=== PATIENT | female | born 1960 | race Caucasian/White ===

== ENCOUNTER 2019-03-01 15:14 | Observation (INO) | payer SELFPAY ==
[2019-03-01] MEDS ORDERED: NORMAL SALINE 1000 ML 1,000 ML IV ONE (16:12)
--- NOTE | 2019-03-01 16:14 | ER Document Report ---
ED Medical Screen (RME) - General Chief Complaint: Slurred Speech Stated Complaint: POSSIBLE SYNCOPE Time Seen by Provider: 03/01/19 16:05 Mode of Arrival: Wheelchair Information source: Patient Notes: Patient presents complaining of syncopal episode that occurred at home in which it caused her to fall into a mirror and dresser. Patient states she has been having low blood pressure readings at home today with a reading as low as 68/48. Patient is not on any antihypertensive medication. Patient states she does have left-sided rib and chest pain. Patient's family states that they have noticed that her speech has been slurred since about 8 AM today. Patient does have a history of lupus and prior CVA. I have greeted and performed a rapid initial assessment of this patient. A comprehensive ED assessment and evaluation of the patient, analysis of test results and completion of the medical decision making process will be conducted by additional ED providers. - Related Data Allergies/Adverse Reactions: Penicillins Allergy (Verified 03/01/19 16:09) Sulfa (Sulfonamide Antibiotics) Allergy (Verified 03/01/19 16:09) Past Medical History - Social History Frequency of alcohol use: None Drug Abuse: None Physical Exam - Vital signs Vitals: Temp Pulse Resp BP Pulse Ox 97.6 F 84 16 92/75 L 99 03/01/19 15:20 03/01/19 15:20 03/01/19 15:20 03/01/19 15:20 03/01/19 15:20 - General General appearance: Alert Notes: Speech slightly slurred - Neurological Orientation: AAOx4 [place] Coma Scale Eye Opening: Spontaneous [place] Coma Scale Verbal: Oriented [place] Coma Scale Motor: Obeys Commands [place] Coma Scale Total: 15 Speech: Dysarthria Course - Vital Signs Vital signs: Temp Pulse Resp BP Pulse Ox 97.6 F 84 16 92/75 L 99 03/01/19 15:20 03/01/19 15:20 03/01/19 15:20 03/01/19 15:20 03/01/19 15:20
--- NOTE | 2019-03-01 16:41 | RADIOLOGY REPORT (SQ) ---
EXAM DESCRIPTION: CHEST SINGLE VIEW COMPLETED DATE/TIME: 03/01/2019 4:23 pm REASON FOR STUDY: syncope, slurred speech, L rib/cp COMPARISON: None. EXAM PARAMETERS: NUMBER OF VIEWS: One view. TECHNIQUE: Single frontal radiographic view of the chest acquired. RADIATION DOSE: NA LIMITATIONS: None. FINDINGS: LUNGS AND PLEURA: No opacities, masses or pneumothorax. No pleural effusion. MEDIASTINUM AND HILAR STRUCTURES: No masses. Contour normal. HEART AND VASCULAR STRUCTURES: Heart normal in size. Normal vasculature. BONES: No acute findings. HARDWARE: None in the chest. OTHER: No other significant finding. IMPRESSION: NO ACUTE RADIOGRAPHIC FINDING IN THE CHEST. TECHNICAL DOCUMENTATION: JOB ID: [id number] [employer]- All Rights Reserved Reading location - IP/workstation name: [email or web address]
--- NOTE | 2019-03-01 16:47 | RADIOLOGY REPORT (SQ) ---
EXAM DESCRIPTION: CT HEAD WITHOUT COMPLETED DATE/TIME: 03/01/2019 4:27 pm REASON FOR STUDY: syncope, slurred speech COMPARISON: None. TECHNIQUE: Axial images acquired through the brain without intravenous contrast. Images reviewed wi th bone, brain and subdural windows. Additional sagittal and coronal reconstructions were generated. Images stored on PACS. All CT scanners at this facility use dose modulation, iterative reconstruction, and/or weight based d osing when appropriate to reduce radiation dose to as low as reasonably achievable (ALARA). [facility]: Dose Right [facility]: CareDose [facility]: Dose Right [facility]: Teradose 4D [facility]: Zetera RADIATION DOSE: CT Rad equipment meets quality standard of care and radiation dose reduction techniq ues were employed. CTDIvol: 53.2 mGy. DLP: 1017 mGy-cm. mGy. LIMITATIONS: None. FINDINGS: VENTRICLES: Normal size and contour. CEREBRUM: No masses. No hemorrhage. No midline shift. No evidence for acute infarction. Normal gra y/white matter differentiation. No areas of low density in the white matter. CEREBELLUM: No masses. No hemorrhage. No alteration of density. No evidence for acute infarction. EXTRAAXIAL SPACES: No fluid collections. No masses. ORBITS AND GLOBE: No intra- or extraconal masses. Normal contour of globe without masses. CALVARIUM: No fracture. PARANASAL SINUSES: No fluid or mucosal thickening. SOFT TISSUES: No mass or hematoma. OTHER: No other significant finding. IMPRESSION: NO ACUTE INTRACRANIAL IMAGING FINDINGS. EVIDENCE OF ACUTE STROKE: NO. COMMENT: Quality ID # [id number]: Final reports with documentation of one or more dose reduction techniques (e.g., Automated exposure control, adjustment of the mA and/or kV according to patient size, use of iterative reconstruction technique) TECHNICAL DOCUMENTATION: JOB ID: [id number] [employer]- All Rights Reserved Reading location - IP/workstation name: [email or web address]
[2019-03-01 16:49] LABS: ABSOLUTE BASOPHILS # (AUTO) 0.1 10^3/uL (0.0-0.2); ABSOLUTE EOSINOPHILS # (AUTO) 0.2 10^3/uL (0.0-0.6); ABSOLUTE LYMPHOCYTES (AUTO) 2.6 10^3/uL (0.5-4.7); ABSOLUTE MONOCYTES (AUTO) 0.4 10^3/uL (0.1-1.4); ABSOLUTE NEUT (AUTO) 3.4 10^3/uL (1.7-8.2); BASOPHILS % (AUTO) 1.4 % (0-2); HEMATOCRIT 39.6 % (36.0-47.0); LYMPHOCYTES % (AUTO) 38.7 % (13-45); MEAN CORPUSCULAR HEMOGLOBIN 32.8 pg (27.0-33.4); MEAN CORPUSCULAR HGB CONC 35.2 g/dL (32.0-36.0); MEAN CORPUSCULAR VOLUME 93 fl (80-97); MONOCYTES % (AUTO) 6.2 % (3-13); PLATELET COUNT 171 10^3/uL (150-450); RED BLOOD COUNT 4.26 10^6/uL (3.72-5.28); RED CELL DISTRIBUTION WIDTH 13.7 % (11.5-14.0); SEGMENTED NEUTROPHILS % (AUTO) 50.7 % (42-78); TOTAL CELLS COUNTED % (AUTO) 100 %; WHITE BLOOD COUNT 6.7 10^3/uL (4.0-10.5)
[2019-03-01 16:54] LABS: INTERNATIONAL RATION (INR) 1.01; PROTHROMBIN TIME 13.3 SEC (11.4-15.4)
[2019-03-01 16:55] LABS: PARTIAL THROMBOPLASTIN TIME 39.5 SEC (23.5-35.8)
[2019-03-01 17:09] LABS: ALKALINE PHOSPHATASE 97 U/L (38-126); ANION GAP 15 (5-19); ASPARTATE AMINO TRANSFERASE 66 U/L (14-36); BILIRUBIN,DIRECT 0.3 mg/dL (0.0-0.4); BILIRUBIN,TOTAL 0.8 mg/dL (0.2-1.3); BLOOD UREA NITROGEN 16 mg/dL (7-20); CALCIUM 10.2 mg/dL (8.4-10.2); CARBON DIOXIDE 24 mmol/L (22-30); CHLORIDE 100 mmol/L (98-107); CREATINE KINASE 43 U/L (30-135); GLUCOSE 111 mg/dL (75-110); POTASSIUM 3.6 mmol/L (3.6-5.0); TOTAL PROTEIN 8.7 g/dL (6.3-8.2)
[2019-03-01 17:20] LABS: CREATINE KINASE MB 0.33 ng/mL (<4.55)
[2019-03-01 17:25] LABS: TROPONIN I < 0.012 ng/mL
[2019-03-01] MEDS ORDERED: ASPIRIN 325 MG TABLET, ENT COATED PO ONE (17:27)
--- NOTE | 2019-03-01 17:41 | ER Document Report ---
ED General - General Chief Complaint: Slurred Speech Stated Complaint: POSSIBLE SYNCOPE Time Seen by Provider: 03/01/19 16:05 Mode of Arrival: Wheelchair - HPI Patient complains to provider of: chest heaviness and drawn out speech Onset: Yesterday Severity: Moderate Pain Level: 2 Context: 58 year old female - current everyday smoker - arrives with son with multiple complaints. Chest heaviness last evening and today with some sob and today with "drawn out speech" that is not normal for her per her family and herself. She denies recent illness. Visiting from [facility] and has decided to stay here reportedly. Reports a cath in the past, and hld, thyroid disease, and cad with no stents and known CVD with 2 strokes in the past. No fever or chills and no rash or sick contacts. Pain was at rest without aggravating or alleviating factors. Associated symptoms: None Exacerbated by: Denies Relieved by: Denies - Related Data Allergies/Adverse Reactions: coconut Allergy (Verified 03/01/19 19:01) lisinopril Allergy (Verified 03/02/19 00:18) Penicillins Allergy (Verified 03/01/19 16:09) pineapple Allergy (Verified 03/01/19 19:01) Sulfa (Sulfonamide Antibiotics) Allergy (Verified 03/01/19 16:09) peach Allergy (Uncoded 03/01/19 19:01) Past Medical History - General Information source: Patient - Social History Smoking Status: Current Every Day Smoker Frequency of alcohol use: None Drug Abuse: None Family History: Reviewed & Not Pertinent Patient has suicidal ideation: No Patient has homicidal ideation: No Review of Systems - Review of Systems Constitutional: No symptoms reported EENT: No symptoms reported Cardiovascular: No symptoms reported Respiratory: No symptoms reported Gastrointestinal: No symptoms reported Genitourinary: No symptoms reported Female Genitourinary: No symptoms reported Musculoskeletal: No symptoms reported Skin: No symptoms reported Hematologic/Lymphatic: No symptoms reported Neurological/Psychological: No symptoms reported Physical Exam - Vital signs Vitals: Temp Pulse Resp BP Pulse Ox 97.6 F 84 16 92/75 L 99 03/01/19 15:20 03/01/19 15:20 03/01/19 15:20 03/01/19 15:20 03/01/19 15:20 Interpretation: Normal - General General appearance: Appears well, Alert - HEENT Head: Normocephalic, Atraumatic Eyes: Normal Pupils: PERRL - Respiratory Respiratory status: No respiratory distress Chest status: Nontender Breath sounds: Normal Chest palpation: Normal - Cardiovascular Rhythm: Regular Heart sounds: Normal auscultation Murmur: No - Abdominal Inspection: Normal Distension: No distension Bowel sounds: Normal Tenderness: Nontender Organomegaly: No organomegaly - Back Back: Normal, Nontender - Extremities General upper extremity: Normal inspection, Nontender, Normal color, Normal ROM, Normal temperature General lower extremity: Normal inspection, Nontender, Normal color, Normal ROM, Normal temperature, Normal weight bearing. No: Manuel's sign - Neurological Neuro grossly intact: Yes Cognition: Normal Orientation: AAOx4 Kaycee Coma Scale Eye Opening: Spontaneous [place] Coma Scale Verbal: Oriented [place] Coma Scale Motor: Obeys Commands [place] Coma Scale Total: 15 Speech: Normal Motor strength normal: LUE, RUE, LLE, RLE Sensory: Normal - Psychological Associated symptoms: Normal affect, Normal mood - Skin Skin Temperature: Warm Skin Moisture: Dry Skin Color: Normal Course - Re-evaluation Re-evalutation: 03/01/19 17:59 MDM 58 year old female with heart score 4 and ekg that is not ischemic, but not normal - with no prior studies here - is here with chest heaviness and drawn out speech. I have discussed with Dr. Finley and he has graciously agreed to see and evaluate for admission. - Vital Signs Vital signs: Temp Pulse Resp BP Pulse Ox 97.6 F 84 21 H 121/68 99 03/01/19 15:20 03/01/19 15:20 03/02/19 01:01 03/02/19 01:01 03/02/19 01:01 - Laboratory Result Diagrams: 03/01/19 16:33 03/01/19 16:33 Laboratory results interpreted by me: 03/01/19 03/01/19 03/01/19 16:33 16:33 17:58 APTT 39.5 H Glucose 111 H AST 66 H Total Protein 8.7 H Urine Nitrite POSITIVE H - Diagnostic Test Radiology reviewed: Reports reviewed - EKG Interpretation by Me EKG shows normal: Sinus rhythm Rate: Normal Rhythm: NSR - NSR Nl [place] [address] elevation or depression repolarization abnromality diffusely my interpretation. Critical Care Note - Critical Care Note Total time excluding time spent on procedures (mins): 30 Discharge - Discharge Clinical Impression: Difficulty with speech Chest pain Qualifiers: Chest pain type: unspecified Qualified Code(s): R07.9 - Chest pain, unspecified Condition: Good Disposition: ADMITTED INPATIENT Admitting Provider: Malia (Hospitalist) Unit Admitted: [facility]
[2019-03-01] MEDS ORDERED: NITROGLYCERIN 0.4 MG/TAB 25 TAB/BOTTLE SL PRN (17:54)
[2019-03-01 18:32] LABS: APPEARANCE,URINE SLIGHTLY-CLOUDY; BILIRUBIN,URINE NEGATIVE (NEGATIVE); COLOR,URINE YELLOW; GLUCOSE, URINE NEGATIVE (NEGATIVE); KETONES,URINE NEGATIVE (NEGATIVE); LEUKOCYTE ESTERASE,URINE NEGATIVE (NEGATIVE); NITRITE,URINE POSITIVE (NEGATIVE); PROTEIN,URINE NEGATIVE (NEGATIVE); URINE SPECIFIC GRAVITY 1.008; UROBILINOGEN,URINE NEGATIVE mg/dL (<2.0)
--- NOTE | 2019-03-01 18:33 | PDOC H&P ---
History of Present Illness Patient complains of: multiple complaints History of Present Illness: PHILIP ESPITIA is a 58 year old female who reports a past medical history of prior CVA with mild left arm residual weakness and history CAD with no prior intervention or stenting who is presenting with chest pain, syncope and speech problems. Patient's son and [id number] are at the bedside. They report that patient fell earlier today around 12 noon. She reported that she was feeling lightheaded and dizzy and when she stood up she passed out and lost consciousness. Patient's daughter found her on the floor and she was reportedly slightly confused but recovered. Denies urinary or fecal incontinence. Denies seizure-like activity. I do not appreciate gross slurring of speech on encounter but son and [id number] say that her speech is a little slurred and that this is not the way she talks. Patient says that her left arm is slightly more weak than her baseline. On neuro examination, she is a 4/5 strength on the left arm. She also complained that she had chest pain last night which she described as pressure-like in sensation, nonradiating. Denies shortness of breath. She reports that she had a stress test done 2018 and ended up having a cardiac cath in [place]. She was told that she had CAD but there was no obstructive or significant lesion or findings requiring intervention or stenting. 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 She still smokes half a pack to a pack of cigarettes a day. Social History Smoking Status: Current Every Day Smoker Family History Parental Family History Reviewed: Yes - No premature CAD Children Family History Reviewed: No Sibling(s) Family History Reviewed.: No Medication/Allergy Allergies/Adverse Reactions: coconut Allergy (Verified 03/01/19 19:01) Penicillins Allergy (Verified 03/01/19 16:09) pineapple Allergy (Verified 03/01/19 19:01) Sulfa (Sulfonamide Antibiotics) Allergy (Verified 03/01/19 16:09) peach Allergy (Uncoded 03/01/19 19:01) Review of Systems All systems: reviewed and no additional remarkable complaints except as stated - As mentioned in HPI Physical Exam Vital Signs: Temp Pulse Resp BP Pulse Ox 97.6 F 84 16 92/75 L 98 03/01/19 15:20 03/01/19 15:20 03/01/19 15:20 03/01/19 15:20 03/01/19 16:11 Intake & Output 02/28/19 03/01/19 03/02/19 06:59 06:59 06:59 Intake Total 1000 Balance 1000 Weight 172 lb 6.424 oz General appearance: PRESENT: no acute distress, well-developed, well-nourished Head exam: PRESENT: atraumatic, normocephalic Eye exam: PRESENT: conjunctiva pink, EOMI, PERRLA. ABSENT: scleral icterus Ear exam: PRESENT: normal external ear exam Mouth exam: PRESENT: moist, tongue midline Neck exam: ABSENT: carotid bruit, JVD, lymphadenopathy, thyromegaly Respiratory exam: PRESENT: clear to auscultation slick. ABSENT: rales, rhonchi, wheezes Cardiovascular exam: PRESENT: RRR. ABSENT: diastolic murmur, rubs, systolic murmur Pulses: PRESENT: normal dorsalis pedis pul GI/Abdominal exam: PRESENT: normal bowel sounds, soft. ABSENT: distended, guarding, mass, organolmegaly, rebound, tenderness Rectal exam: PRESENT: deferred Neurological exam: PRESENT: alert, awake, oriented to person, oriented to place, oriented to time, oriented to situation, CN II-XII grossly intact, motor sensory deficit - 4/5 left arm strength Results Laboratory Results: 03/01/19 16:33 03/01/19 16:33 03/01/19 03/01/19 16:33 16:33 WBC 6.7 RBC 4.26 Hgb 14.0 Hct 39.6 MCV 93 MCH 32.8 MCHC 35.2 RDW 13.7 Plt Count 171 Seg Neutrophils % 50.7 Sodium 138.8 Potassium 3.6 Chloride 100 Carbon Dioxide 24 Anion Gap 15 BUN 16 Creatinine 0.86 Est GFR ( Amer) > 60 Glucose 111 H Calcium 10.2 Total Bilirubin 0.8 AST 66 H Alkaline Phosphatase 97 Total Protein 8.7 H Albumin 5.0 03/01/19 03/01/19 16:33 16:33 Creatine Kinase 43 CK-MB (CK-2) 0.33 Troponin I < 0.012 Impressions: Chest X-Ray 03/01/19 16:11 IMPRESSION: NO ACUTE RADIOGRAPHIC FINDING IN THE CHEST. Head CT 03/01/19 16:11 IMPRESSION: NO ACUTE INTRACRANIAL IMAGING FINDINGS. EVIDENCE OF ACUTE STROKE: NO. Assessment and Plan - Diagnosis (1) Left arm weakness Is this a current diagnosis for this admission?: Yes Plan: Patient has 4/5 left arm strength. She does report a history of CVA with residual left-sided weakness. She reports her left arm feels slightly more weak than her baseline. I do not appreciate gross slurring of speech on encounter but son and [id number] say that her speech is a little slurred and that this is not the way she talks. (2) Syncope Is this a current diagnosis for this admission?: Yes Plan: We will check orthostatic vital signs. Will order a carotid Doppler. 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 Will continue to cycle troponins and EKGs. Consider outpatient stress testing pending c ompletion of cardiac enzymes. - Time Time Spent with patient: 25-34 minutes
[2019-03-01] MEDS ORDERED: DIAZEPAM 5 MG TABLET PO ONE (20:55)
[2019-03-01] MEDS ORDERED: ATORVASTATIN CALCIUM 40 MG TABLET PO SCH (22:00)
--- NOTE | 2019-03-01 22:18 | EKG REPORT ---
SEVERITY:- BORDERLINE ECG - SINUS RHYTHM BORDERLINE T ABNORMALITIES, ANTERIOR LEADS : Confirmed by: Falguni Norwood 01-Mar-2019 22:17:36
[2019-03-01] MEDS: HEPARIN SOD (PORCINE) 5,000 UNIT/ML 1 ML VIAL SUBCUT SCH (22:26)
[2019-03-01] MEDS ORDERED: NICOTINE 21 MG/24 HR PATCH.TD24 TD ONE (22:45)
[2019-03-01] MEDS ORDERED: ACETAMINOPHEN 325 MG TABLET PO PRN (22:55)
[2019-03-01] MEDS: KETOROLAC TROMETHAMINE INJ/PF 30 MG/1 ML SDV IV PRN (23:21)
--- NOTE | 2019-03-02 02:53 | RADIOLOGY REPORT (SQ) ---
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 TECHNIQUE: MR BRAIN WITHOUT IV CONTRAST on 03/01/2019 7:40 PM MANAGER UNIT This exam was performed according to our departmental dose-optimization program, which includes automated exposure control, adjustment of the mA and/or kV according to patient size and/or use of iterative reconstruction technique. FINDINGS: There is no acute hemorrhage, mass effect or midline shift. There are no areas of restricted diffusion. Midline structures are unremarkable. The expected intracranial flow voids are present. There is no hydrocephalus. There is no significant volume loss for age. The calvarium is intact. Orbits and globes are unremarkable. The paranasal sinuses are clear. Mastoid air cells are clear. IMPRESSION: No acute intracranial findings.
[2019-03-02] MEDS: KETOROLAC TROMETHAMINE INJ/PF 30 MG/1 ML SDV IV PRN (05:17)
[2019-03-02] MEDS: HEPARIN SOD (PORCINE) 5,000 UNIT/ML 1 ML VIAL SUBCUT SCH (05:19)
[2019-03-02] MEDS ORDERED: NITROGLYCERIN 0.4 MG/TAB 25 TAB/BOTTLE SL PRN (08:55)
[2019-03-02] MEDS ORDERED: ASPIRIN 81 MG TABLET, CHEWABLE PO SCH (10:00)
--- NOTE | 2019-03-02 10:20 | PDOC DISCHARGE SUMMARY ---
Impression - Admit/DC Date/PCP Admission Date/Primary Care Provider: 03/01/19 18:56 Discharge Date: 03/02/19 - Assessment Summary: The patient is feeling better today. Her symptoms certainly could have been caused by transient hypotension. She has had extensive cardiac work-up over the last year with no significant positive findings. As discussed with the patient she will discharge to home. She needs to establish with local physicians. I have made referrals as noted above. - Additional Information Resuscitation Status: Full Code Discharge Diet: Cardiac Discharge Activity: Activity As Tolerated Referrals: PHILIPPE DRAPER MD [ACTIVE STAFF] - CARROL TEJADA MD [COMMUNITY BASED STAFF] - Home Medications: Acetaminophen [Tylenol 325 mg Tablet] 650 mg PO Q4HP PRN tablet 03/02/19 Albuterol Sulfate [Albuterol Sulfate Hfa] puff IH 03/02/19 Amitriptyline HCl [Elavil 10 mg Tablet] 10 mg PO 03/02/19 Aspirin [Aspirin 81 mg Chewable Tablet] 81 mg PO DAILY tab.chew 03/02/19 Gabapentin [Neurontin 300 mg Capsule] 300 mg PO 03/02/19 Ipratropium [place] [Atrovent Hfa Inhalation Aerosol 12.9 gm Mdi] puff IH PRN 03/02/19 Levothyroxine Sodium [Synthroid 0.075 mg Tablet] 0.075 mg PO 03/02/19 Methocarbamol [Robaxin 500 mg Tablet] 500 mg PO 03/02/19 Naproxen [Naprosyn] 500 mg PO 03/02/19 Nitroglycerin [Nitrostat 0.4 mg (1/150 Gr) Tabs 25/Bottle] 1 tab SL Q5MP PRN 03/02/19 Prazosin HCl [Minipress] 5 mg PO 03/02/19 Pregabalin 200 mg PO Q8 03/02/19 Sertraline HCl [Zoloft] 25 mg PO 03/02/19 Tizanidine HCl [Zanaflex] 2 mg PO 03/02/19 Topiramate [Topamax 25 mg Tablet] 25 mg PO 03/02/19 History of Present Illiness History of Present Illness: PHILIP ESPITIA is a 58 year old female with a history of CVA and residual mild left arm weakness. She has a history of coronary artery disease but in fact had a catheterization 6 to 8 months ago with no stenting required. She presented to the emergency department after a syncopal episode. Family reported some speech difficulty and the patient reported chest pain. The patient was referred to the hospital service for admission. Hospital Course Hospital Course: Unremarkable hospital course. By this morning all symptoms have resolved. Troponins are undetectable x3. Carotid ultrasound is waiting to be performed however the patient will discharge home and finish her work-up as an outpatient. Physical Exam Vital Signs: Temp Pulse Resp BP Pulse Ox 98.5 F 83 20 112/67 100 03/02/19 08:00 03/02/19 08:00 03/02/19 08:00 03/02/19 08:00 03/02/19 08:00 Intake & Output 03/01/19 03/02/19 03/03/19 06:59 06:59 06:59 Intake Total 1360 Balance 1360 Weight 78.2 kg General appearance: PRESENT: cooperative, mild distress, well-developed, well- nourished Head exam: PRESENT: normocephalic, other - Tender area parieto-occipital scalp. No laceration or severe contusion noted. Eye exam: PRESENT: EOMI. ABSENT: conjunctival injection, scleral icterus Ear exam: PRESENT: normal external ear exam. ABSENT: bleeding, drainage Teeth exam: PRESENT: poor dentation Cardiovascular exam: PRESENT: RRR, +S1, +S2 GI/Abdominal exam: PRESENT: normal bowel sounds, soft, tenderness - Tenderness bilateral anterior axillary flank areas mid to lower abdomen. No palpable masses.. ABSENT: distended Rectal exam: PRESENT: deferred Gentrourinary exam: ABSENT: indwelling catheter Musculoskeletal exam: PRESENT: normal inspection Neurological exam: PRESENT: alert, awake, oriented to person, oriented to place, oriented to time, oriented to situation, CN II-XII grossly intact Psychiatric exam: ABSENT: agitated, anxious Results Laboratory Results: WBC 6.7 10^3/uL (4.0-10.5) 03/01/19 16:33 RBC 4.26 10^6/uL (3.72-5.28) 03/01/19 16:33 Hgb 14.0 g/dL (12.0-15.5) 03/01/19 16:33 Hct 39.6 % (36.0-47.0) 03/01/19 16:33 MCV 93 fl (80-97) 03/01/19 16:33 MCH 32.8 pg (27.0-33.4) 03/01/19 16:33 MCHC 35.2 g/dL (32.0-36.0) 03/01/19 16:33 RDW 13.7 % (11.5-14.0) 03/01/19 16:33 Plt Count 171 10^3/uL (150-450) 03/01/19 16:33 Lymph % (Auto) 38.7 % (13-45) 03/01/19 16:33 [place] % (Auto) 6.2 % (3-13) 03/01/19 16:33 Eos % (Auto) 3.0 % (0-6) 03/01/19 16:33 Baso % (Auto) 1.4 % (0-2) 03/01/19 16:33 Absolute Neuts (auto) 3.4 10^3/uL (1.7-8.2) 03/01/19 16:33 Absolute Lymphs (auto) 2.6 10^3/uL (0.5-4.7) 03/01/19 16:33 Absolute Monos (auto) 0.4 10^3/uL (0.1-1.4) 03/01/19 16:33 Absolute Eos (auto) 0.2 10^3/uL (0.0-0.6) 03/01/19 16:33 Absolute Basos (auto) 0.1 10^3/uL (0.0-0.2) 03/01/19 16:33 Seg Neutrophils % 50.7 % (42-78) 03/01/19 16:33 PT 13.3 SEC (11.4-15.4) 03/01/19 16:33 INR 1.01 03/01/19 16:33 APTT 39.5 SEC (23.5-35.8) H 03/01/19 16:33 Sodium 138.8 mmol/L (137-145) 03/01/19 16:33 Potassium 3.6 mmol/L (3.6-5.0) 03/01/19 16:33 Chloride 100 mmol/L (98-107) 03/01/19 16:33 Carbon Dioxide 24 mmol/L (22-30) 03/01/19 16:33 Anion Gap 15 (5-19) 03/01/19 16:33 BUN 16 mg/dL (7-20) 03/01/19 16:33 Creatinine 0.86 mg/dL (0.52-1.25) 03/01/19 16:33 Est GFR ( Amer) > 60 (>60) 03/01/19 16:33 Est GFR (MDRD) Non-Af > 60 (>60) 03/01/19 16:33 Glucose 111 mg/dL (75-110) H 03/01/19 16:33 Calcium 10.2 mg/dL (8.4-10.2) 03/01/19 16:33 Total Bilirubin 0.8 mg/dL (0.2-1.3) 03/01/19 16:33 Direct Bilirubin 0.3 mg/dL (0.0-0.4) 03/01/19 16:33 Neonat Total Bilirubin Not Reportable 03/01/19 16:33 Neonat Direct Bilirubin Not Reportable 03/01/19 16:33 Neonat Indirect Bili Not Reportable 03/01/19 16:33 AST 66 U/L (14-36) H 03/01/19 16:33 ALT 46 U/L (<35) 03/01/19 16:33 Alkaline Phosphatase 97 U/L (38-126) 03/01/19 16:33 Creatine Kinase 43 U/L (30-135) 03/01/19 16:33 CK-MB (CK-2) 0.33 ng/mL (<4.55) 03/01/19 16:33 Troponin I < 0.012 ng/mL 03/02/19 05:48 Total Protein 8.7 g/dL (6.3-8.2) H 03/01/19 16:33 Albumin 5.0 g/dL (3.5-5.0) 03/01/19 16:33 Urine Color YELLOW 03/01/19 17:58 Urine Appearance SLIGHTLY-CLOUDY 03/01/19 17:58 Urine pH 5.0 (5.0-9.0) 03/01/19 17:58 Ur Specific [place] 1.008 03/01/19 17:58 Urine Protein NEGATIVE mg/dL (NEGATIVE) 03/01/19 17:58 Urine Glucose (UA) NEGATIVE mg/dL (NEGATIVE) 03/01/19 17:58 Urine Ketones NEGATIVE mg/dL (NEGATIVE) 03/01/19 17:58 Urine Blood NEGATIVE (NEGATIVE) 03/01/19 17:58 Urine Nitrite POSITIVE (NEGATIVE) H 03/01/19 17:58 Urine Bilirubin NEGATIVE (NEGATIVE) 03/01/19 17:58 Urine Urobilinogen NEGATIVE mg/dL (<2.0) 03/01/19 17:58 Ur Leukocyte Esterase NEGATIVE (NEGATIVE) 03/01/19 17:58 Urine WBC (Auto) 3 /HPF 03/01/19 17:58 Urine RBC (Auto) 0 /HPF 03/01/19 17:58 U Hyaline Cast (Auto) 6 /LPF 03/01/19 17:58 Urine Bacteria (Auto) 1+ /HPF 03/01/19 17:58 Squamous Epi Cells Auto 1 /HPF 03/01/19 17:58 Urine Mucus (Auto) FEW /LPF 03/01/19 17:58 Urine Ascorbic Acid NEGATIVE (NEGATIVE) 03/01/19 17:58 03/01/19 03/01/19 03/02/19 16:33 22:46 05:48 CK-MB (CK-2) 0.33 Troponin I < 0.012 < 0.012 < 0.012 Impressions: Chest X-Ray 03/01/19 16:11 IMPRESSION: NO ACUTE RADIOGRAPHIC FINDING IN THE CHEST. Head CT 03/01/19 16:11 IMPRESSION: NO ACUTE INTRACRANIAL IMAGING FINDINGS. EVIDENCE OF ACUTE STROKE: NO. Head MRI 03/01/19 19:40 IMPRESSION: No acute intracranial findings. Plan Health Concerns: Multiple comorbidities requiring multiple specialists. The patient would benefit from a strong primary care provider to coordinate all of the prac titioners as well as monitor for polypharmacy. Plan of Treatment: Establish initially with primary care and cardiology. Primary care can then refer to neurology as well as the multiple specialist that she was previously seeing in [place]. She reports that her son is going to be having her relocate locally. Goals: Relocated to [place] and establish with appropriate medical providers. Time Spent: Greater than 30 Minutes Stroke Is this a Stroke Patient?: No Acute Heart Failure - Is this a Heart Failure Patient?: No
[2019-03-02] MEDS ORDERED: BUTALB/ACETAMINOPHEN/CAFFEINE 1 TAB EACH PO ONE (10:30)
[2019-03-02 11:29] VITALS: BP 110/65
== END 2019-03-02 11:43 | disposition home or self-care (01) ==
LOC: ER 15:14 → EH 18:56 → INTOOBSV 18:56 → EH 03-02 09:57
PROVIDERS: ADMIT Internal Medicine; ATTEND Internal Medicine
DX: R07.9 Chest pain, unspecified (principal); R53.1 Weakness; R55 Syncope and collapse; I25.10 Atherosclerotic heart disease of native coronary artery without angina pectoris; I69.334 Monoplegia of upper limb following cerebral infarction affecting left non-dominant side; R06.02 Shortness of breath; R47.1 Dysarthria and anarthria; R40.2362 Coma scale, best motor response, obeys commands, at arrival to emergency department; R40.2142 Coma scale, eyes open, spontaneous, at arrival to emergency department; R40.2252 Coma scale, best verbal response, oriented, at arrival to emergency department; F17.210 Nicotine dependence, cigarettes, uncomplicated
CPT/HCPCS: 93005; 99291; 96360; 36415 ×2; 82553; 82550; 85025; 85610; 85730; 80053; 81001; 84484 ×2; 70551; 71045; 70450; 93010; G0378 ×2; J3490 ×2; J1885 ×2; J7030

== ENCOUNTER 2019-07-23 16:55 | Emergency (ER) | payer MEDICAID ==
[2019-07-23 17:18] LABS: ABSOLUTE BASOPHILS # (AUTO) 0.1 10^3/uL (0.0-0.2); ABSOLUTE EOSINOPHILS # (AUTO) 0.2 10^3/uL (0.0-0.6); ABSOLUTE LYMPHOCYTES (AUTO) 1.8 10^3/uL (0.5-4.7); ABSOLUTE MONOCYTES (AUTO) 0.4 10^3/uL (0.1-1.4); ABSOLUTE NEUT (AUTO) 2.6 10^3/uL (1.7-8.2); BASOPHILS % (AUTO) 1.1 % (0-2); HEMATOCRIT 36.1 % (36.0-47.0); HEMOGLOBIN 12.5 g/dL (12.0-15.5); LYMPHOCYTES % (AUTO) 35.9 % (13-45); MEAN CORPUSCULAR HGB CONC 34.7 g/dL (32.0-36.0); MEAN CORPUSCULAR VOLUME 92 fl (80-97); PLATELET COUNT 124 10^3/uL (150-450); RED BLOOD COUNT 3.92 10^6/uL (3.72-5.28); RED CELL DISTRIBUTION WIDTH 13.5 % (11.5-14.0); TOTAL CELLS COUNTED % (AUTO) 100 %
[2019-07-23 17:36] LABS: ALBUMIN 3.8 g/dL (3.5-5.0); ALKALINE PHOSPHATASE 87 U/L (38-126); ANION GAP 6 (5-19); ASPARTATE AMINO TRANSFERASE 35 U/L (14-36); BILIRUBIN,TOTAL 0.6 mg/dL (0.2-1.3); BLOOD UREA NITROGEN 12 mg/dL (7-20); CALCIUM 8.8 mg/dL (8.4-10.2); CARBON DIOXIDE 24 mmol/L (22-30); CHLORIDE 107 mmol/L (98-107); CREATINE KINASE 61 U/L (30-135); GLUCOSE 110 mg/dL (75-110); POTASSIUM 3.8 mmol/L (3.6-5.0)
--- NOTE | 2019-07-23 17:41 | ER Document Report ---
ED Dizziness/Weakness - General Chief Complaint: Syncope Stated Complaint: SYNOPE Time Seen by Provider: 07/23/19 17:10 Primary Care Provider: TINY GONZALEZ PA-C [Primary Care Provider] - Follow up as needed Mode of Arrival: Stretcher Information source: Patient Notes: Patient is a 58-year-old female who comes in by EMS after sustaining a syncopal type episode where she became dizzy and fell. She originally states that she is coming down her stairs going into the kitchen using her walker because she has a history of chronic back problems while she felt a wave come over her that she became weak and she believes she began to sit down on her walker but when she came to the walker was on top of her. She struggled to get up and go to the living room where her phone was and as she got to the living room again she got this wave coming over her weakness and she fell again onto the couch hitting the back of her head. She is unsure whether she struck her head in the kitchen floor or not. Patient denies any history of anticoagulation. She denies any history of hypertension states she has a history of hypotension. She has history of chronic back problems she sees an orthopedist and a neurologist. Patient denies any history of cardiac problems she has had no nausea vomiting or diarrhea. She has had no loss of sensation in her lower extremities. This following this started happening more regularly started approximately 2 months ago. She says she has discussed it with her primary care physician but that there is nothing they have done about it at this point. The falling seems to be getting more frequent. She also does have a history of migraines but denies any headache currently. TRAVEL OUTSIDE OF THE [place] IN LAST 30 DAYS: No - HPI Patient complains to provider of: Dizziness, Weakness. No: Vertigo Onset: Just prior to arrival Onset/Duration: Sudden, Intermittent Quality of pain: No pain Severity: Moderate Pain Level: 2 Associated symptoms: Fainted Baseline gait: Uses a walker - Related Data Allergies/Adverse Reactions: coconut Allergy (Verified 07/23/19 20:24) lisinopril Allergy (Verified 07/23/19 20:24) Penicillins Allergy (Verified 07/23/19 20:24) pineapple Allergy (Verified 07/23/19 20:24) Sulfa (Sulfonamide Antibiotics) Allergy (Verified 07/23/19 20:24) peach Allergy (Mild, Uncoded 07/23/19 20:24) Past Medical History - General Information source: Patient - Social History Smoking Status: Current Some Day Smoker Cigarette use (# per day): Yes - Patient states that she is down to having 1 cigarette a day with her coffee Smoking Education Provided: Yes Frequency of alcohol use: None Drug Abuse: None Lives with: Family Family History: Reviewed & Not Pertinent Patient has homicidal ideation: No - Past Medical History Cardiac Medical History: Reports: Hx Heart Attack Pulmonary Medical History: Reports: Hx COPD Musculoskeletal Medical History: Reports Hx Arthritis Psychiatric Medical History: Reports: Hx Depression - anxiety Review of Systems - Review of Systems Constitutional: No symptoms reported EENT: denies: Ear pain, Ear discharge, Nose congestion, Nose discharge, Sinus pressure, Sinus discharge - No give yourself to schedule exercise Cardiovascular: No symptoms reported Respiratory: No symptoms reported Gastrointestinal: No symptoms reported Genitourinary: No symptoms reported Female Genitourinary: No symptoms reported Musculoskeletal: Back pain Skin: No symptoms reported Hematologic/Lymphatic: No symptoms reported Neurological/Psychological: Lost consciousness -: Yes All other systems reviewed and negative Physical Exam - Vital signs Vitals: Pulse Ox 99 07/23/19 17:00 Interpretation: Hypotensive - Notes Notes: PHYSICAL EXAMINATION: GENERAL: Patient is well-nourished well-developed 50-year-old female who is in no apparent distress on physical exam. She is awake alert and oriented x4. She is communicative. HEAD: Atraumatic, normocephalic. Examination patient's head shows no sign of hematomas abrasions or ecchymosis. No soft spots on the head and no tender spots on palpation throughout the skull. EYES: Pupils equal round and reactive to light, extraocular movements intact, conjunctiva are normal. ENT: Nares patent, oropharynx clear without exudates. Moist mucous membranes. NECK: Examination patient very concerned as her cervical spine she has tenderness noted at the proximal portion of the posterior cervical spine at the base of the skull. Patient has tenderness to palpation in that area. She has no range of motion deficiencies noted at this time. LUNGS: Auscultation patient's lungs show she has bilateral breath sounds breath sounds are increased throughout there is no rhonchi rales or wheeze heard at this time HEART: Regular rate and rhythm without murmurs ABDOMEN: Soft, nontender, nondistended abdomen. No guarding, no rebound. No masses appreciated. Female : deferred Musculoskeletal: Normal range of motion, no pitting or edema. No cyanosis. NEUROLOGICAL: Normal speech, Normal sensory, motor exams PSYCH: Normal mood, normal affect. SKIN: Warm, Dry, normal turgor, no rashes or lesions noted. Course - Re-evaluation Re-evalutation: 07/23/19 21:56 Patient CTs came back negative for any acute findings. There were several other areas that found patient somewhat depleted and. Patient definitely had some abnormalities. Her TSH was 13.1. She was orthostatic when prior to getting her fluids and laying down her blood pressure was 93/64 with a heart rate of 56 and when she stood up she got dizzy lightheaded and her blood pressure dropped to 80/49 and a heart rate of 70. Patient was also found to have UTI with positive nitrites. I discussed the case with and he also feels that it is okay to send patient home given that most of her complaints of the falling recently had been discussed with her other physicians that she is seeing an orthopedic doctor for her back that we have because ineffective for treatment of slight dehydration according to volume depletion as well as urinary tract infection and the hypothyroid. She will follow-up with her primary care Dr. Díaz sometime this week he is with [facility]. - Vital Signs Vital signs: Temp Pulse Resp BP Pulse Ox 97.7 F 56 L 11 L 111/61 96 07/23/19 17:12 07/23/19 18:04 07/23/19 22:01 07/23/19 22:00 07/23/19 22:01 - Laboratory Result Diagrams: 07/23/19 17:00 07/23/19 17:00 Laboratory results interpreted by me: 07/23/19 07/23/19 07/23/19 17:00 17:00 19:40 Plt Count 124 L TSH 13.10 H Urine Nitrite POSITIVE H Discharge - Discharge Clinical Impression: Orthostatic hypotension Urinary tract infection Qualifiers: Urinary tract infection type: site unspecified Hematuria presence: without hematuria Qualified Code(s): N39.0 - Urinary tract infection, site not specified Hypothyroid Qualifiers: Hypothyroidism type: unspecified Qualified Code(s): E03.9 - Hypothyroidism, unspecified Disposition: HOME, SELF-CARE Instructions: Urinary Tract Infection ([facility]) Additional Instructions: Orthostatic Hypotension You have orthostatic hypotension. Your blood pressure goes down when you stand up. Symptoms can include dizziness, transient loss of vision, ringing in the ears, nausea, and fainting. At this time, there's no evidence of a serious problem requiring hospitalization. Orthostatic hypotension can be caused by dehydration, poor nutrition, over- exercise, or medication. For some people, orthostatic hypotension is an ongoing problem, and no cause can be found. We usually treat orthostatic hypotension with fluids. We look for a treatable cause. If no cause was found, you should get enough rest, exercise mod erately, and get plenty of fluids. When you feel the first symptoms suggesting you might faint, sit or squat down as quickly as you can. If symptoms don't go away quickly, lie down. Call the doctor or return if you are worsening or if new symptoms develop. Urinary Tract Infection Your evaluation indicates that you have a urinary tract infection. This is due to germs growing in the bladder. This is a common problem. This infection usually responds quickly to antibiotics. Your antibiotic should be taken exactly as prescribed. Drink plenty of fluids -- three to four quarts a day. Occasionally, a bladder anesthetic will be prescribed to help stop the feeling of urgency until the antibiotic has a chance to clear the infection. This may cause your urine to be dark orange. Certain urine infections require a culture. If the doctor obtained a culture, the results will be back in two days. You should call to see if a change in treatment is needed. A repeat urinalysis after you finish treatment is often recommended. The physician will let you know if further testing is required. Call the doctor if you develop fever, chills, flank pain, inability to urinate, or blood in the urine. Hypothyroidism The thyroid gland is found in the front of the neck. It produces thyroid hormone. Thyroid hormone regulates the metabolism. Hypothyroidism means the gland is not turning out enough thyroid hormone. Too much thyroid hormone "turns up the thermostat" too high, causing weight loss, nervousness, rapid heartbeat, and weakness. Too little thyroid hormone causes fatigue, depression, weight gain, and hair thinning. Hypothyroidism is treated with thyroid replacement pills. Testing can show if there are other hormone problems, and can determine whether the pituitary gland or thyroid gland is at fault. Contact the doctor or return if you change for the worse -- for example, palpitations, severe nervousness, chest pain, shortness of breath, worsening weakness or lightheadedness. As we discussed increase fluid. Also contact your primary care provider Friday and have them get your records from our visit here today so you can set up with a relatively soon follow-up. Take all of the antibiotics as prescribed. Return to ER if you have any concerns or problems. Prescriptions: Ciprofloxacin HCl [Cipro 500 mg Tablet] 500 mg PO BID #14 tablet Fluconazole [Diflucan] 150 mg PO ONCE PRN #1 tablet PRN Reason: Referrals: TINY GONZALEZ PA-C [Primary Care Provider] - Follow up as needed
[2019-07-23 17:47] LABS: CREATINE KINASE MB 0.27 ng/mL (<4.55)
--- NOTE | 2019-07-23 18:05 | RADIOLOGY REPORT (SQ) ---
EXAM DESCRIPTION: CHEST SINGLE VIEW IMAGES COMPLETED DATE/TIME: 07/23/2019 5:57 pm REASON FOR STUDY: Syncope COMPARISON: 03/01/2019 EXAM PARAMETERS: NUMBER OF VIEWS: One view. TECHNIQUE: Single frontal radiographic view of the chest acquired. RADIATION DOSE: NA LIMITATIONS: None. FINDINGS: LUNGS AND PLEURA: No opacities, masses or pneumothorax. No pleural effusion. MEDIASTINUM AND HILAR STRUCTURES: No masses. Contour normal. HEART AND VASCULAR STRUCTURES: Heart normal in size. Normal vasculature. BONES: No acute findings. HARDWARE: None in the chest. OTHER: No other significant finding. IMPRESSION: 1. No significant interval changes since the previous examination dated 03/01/2019. No a cute findings. TECHNICAL DOCUMENTATION: JOB ID: [id number] 2010 [employer]- All Rights Reserved Reading location - IP/workstation name: [email or web address]
[2019-07-23 18:08] LABS: TROPONIN I < 0.012 ng/mL
--- NOTE | 2019-07-23 18:25 | RADIOLOGY REPORT (SQ) ---
EXAM DESCRIPTION: CT HEAD WITHOUT IMAGES COMPLETED DATE/TIME: 07/23/2019 6:04 pm REASON FOR STUDY: Syncope COMPARISON: MR 03/01/2019 CT 03/01/2019 TECHNIQUE: Axial images acquired through the brain without intravenous contrast. Images reviewed wi th bone, brain and subdural windows. Additional sagittal and coronal reconstructions were generated. Images stored on PACS. All CT scanners at this facility use dose modulation, iterative reconstruction, and/or weight based d osing when appropriate to reduce radiation dose to as low as reasonably achievable (ALARA). [facility]: Dose Right [facility]: CareDose [facility]: Dose Right [facility]: Teradose 4D [facility]: Smart Page Mage RADIATION DOSE: CT Rad equipment meets quality standard of care and radiation dose reduction techniq ues were employed. CTDIvol: 53.2 mGy. DLP: 1044 mGy-cm. mGy. LIMITATIONS: None. FINDINGS: VENTRICLES: Normal size and contour. CEREBRUM: No masses. No hemorrhage. No midline shift. No evidence for acute infarction. Normal gra y/white matter differentiation. No areas of low density in the white matter. CEREBELLUM: No masses. No hemorrhage. No alteration of density. No evidence for acute infarction. EXTRAAXIAL SPACES: No fluid collections. No masses. ORBITS AND GLOBE: No intra- or extraconal masses. Normal contour of globe without masses. CALVARIUM: No fracture. PARANASAL SINUSES: No fluid or mucosal thickening. SOFT TISSUES: No mass or hematoma. OTHER: No other significant finding. IMPRESSION: NORMAL BRAIN CT WITHOUT CONTRAST. EVIDENCE OF ACUTE STROKE: NO. COMMENT: Quality ID # [id number]: Final reports with documentation of one or more dose reduction techniques (e.g., Automated exposure control, adjustment of the mA and/or kV according to patient size, use of iterative reconstruction technique) TECHNICAL DOCUMENTATION: JOB ID: [id number] 2010 [employer]- All Rights Reserved Reading location - IP/workstation name: [email or web address]
--- NOTE | 2019-07-23 18:28 | RADIOLOGY REPORT (SQ) ---
EXAM DESCRIPTION: CT CERVICAL SPINE WITHOUT IMAGES COMPLETED DATE/TIME: 07/23/2019 6:04 pm REASON FOR STUDY: Syncope COMPARISON: None. TECHNIQUE: Axial images acquired through the cervical spine without intravenous contrast. Images re viewed with lung, soft tissue and bone windows. Reconstructed coronal and sagittal MPR images review ed. Images stored on PACS. All CT scanners at this facility use dose modulation, iterative reconstruction, and/or weight based d osing when appropriate to reduce radiation dose to as low as reasonably achievable (ALARA). [facility]: Dose Right [facility]: CareDose [facility]: Dose Right [facility]: Teradose 4D [facility]: [employer] RADIATION DOSE: CT Rad equipment meets quality standard of care and radiation dose reduction techniq ues were employed. CTDIvol: 16.0 mGy. DLP: 305 mGy-cm. mGy. LIMITATIONS: None. FINDINGS: ALIGNMENT: Anatomic. MINERALIZATION: Normal. VERTEBRAL BODIES: No fracture dislocation. There are cystic changes in the C4 vertebral body on the right. DISCS: Disc spaces are narrowed from C4-C7 with marginal osteophytes. FACETS, LATERAL MASSES, POSTERIOR ELEMENTS: Hypertrophic facet changes in the upper cervical spine on the left to a mild degree. HARDWARE: None in the spine. VISUALIZED RIBS: No fractures. LUNG APICES AND SOFT TISSUES: No significant or acute findings. OTHER: No other significant finding. IMPRESSION: Degenerative disc disease, spondylosis, facet arthropathy. Cystic changes in the C4 lidya tebral body. No acute finding. TECHNICAL DOCUMENTATION: JOB ID: [id number] Quality ID # [id number]: Final reports with documentation of one or more dose reduction techniques (e.g., Au tomated exposure control, adjustment of the mA and/or kV according to patient size, use of iterative reconstruction technique) 2010 [employer]- All Rights Reserved Reading location - IP/workstation name: [email or web address]
[2019-07-23] MEDS ORDERED: NORMAL SALINE 1000 ML 1,000 ML IV ONE ×2 (19:34→20:15)
[2019-07-23 20:20] LABS: APPEARANCE,URINE CLEAR; BILIRUBIN,URINE NEGATIVE (NEGATIVE); COLOR,URINE YELLOW; GLUCOSE, URINE NEGATIVE (NEGATIVE); KETONES,URINE NEGATIVE (NEGATIVE); LEUKOCYTE ESTERASE,URINE NEGATIVE (NEGATIVE); NITRITE,URINE POSITIVE (NEGATIVE); PROTEIN,URINE NEGATIVE (NEGATIVE); URINE SPECIFIC GRAVITY 1.005; UROBILINOGEN,URINE NEGATIVE mg/dL (<2.0)
[2019-07-23 20:33] LABS: URINE AMPHETAMINES SCREEN NEGATIVE; URINE BARBITURATES SCREEN NEGATIVE; URINE BENZODIAZEPINES SCREEN NEGATIVE; URINE COCAINE SCREEN NEGATIVE; URINE MARIJUANA (THC) SCREEN NEGATIVE; URINE METHADONE SCREEN NEGATIVE; URINE PHENCYCLIDINE SCREEN NEGATIVE
--- NOTE | 2019-07-23 21:29 | EKG REPORT ---
SEVERITY:- ABNORMAL ECG - SINUS RHYTHM FIRST DEGREE AV BLOCK INCOMPLETE RIGHT BUNDLE BRANCH BLOCK : Confirmed by: Juan Moreland MD 23-Jul-2019 21:27:58
[2019-07-23] MEDS ORDERED: CIPROFLOXACIN HCL 500 MG TABLET PO ONE (22:04)
[2019-07-23 22:05] VITALS: BP 111/61
== END 2019-07-23 22:25 | disposition home or self-care (01) ==
LOC: ER 16:55
DX: N39.0 Urinary tract infection, site not specified (principal); I95.1 Orthostatic hypotension; E03.9 Hypothyroidism, unspecified; R42 Dizziness and giddiness; M54.9 Dorsalgia, unspecified; G89.29 Other chronic pain; R53.1 Weakness; W19.XXXA Unspecified fall, initial encounter; F17.200 Nicotine dependence, unspecified, uncomplicated; J44.9 Chronic obstructive pulmonary disease, unspecified
CPT/HCPCS: 93005; 99285; 96360; 96361; 36415; 82553; 82550; 84443; 85025; 80053; 81001; 84484; 80307; 71045; 70450; 72125; 93010; J3490; J7030